=== PATIENT | female | born 1940 | race Two or more races ===

== ENCOUNTER → 2023-11-25 13:58 | Outpatient (REF) | payer MEDICARE, SELFPAY | LOC: WDC 13:58 | PROVIDERS: ATTENDING PHYSICIAN Internal Medicine Geriatric Medicine | DX: Z12.31 Encounter for screening mammogram for malignant neoplasm of breast (principal) | CPT/HCPCS: 77063; 77067 ==

== ENCOUNTER → 2023-12-24 11:30 | Outpatient (REF) | payer MEDICARE, SELFPAY ==
[2023-12-24 12:36] LABS: % Basophils 0.9 % (0-2); % Eosinophils 1.7 % (0-6); % Lymphocytes 38.4 % (20.5-51.1); % Monocytes 15.2 % (1.7-9.3); % Neutrophils 43.8 % (42.2-75.2); Absolute Eosinophils 0.1 10^3/uL (0-0.7); Absolute Lymphocytes 1.6 10^3/uL (1.2-3.4); Absolute Monocytes 0.6 10^3/uL (0.1-0.6); Absolute Neutrophils 1.9 10^3/uL (1.4-6.5); Hematocrit 37.1 % (37.0-47.0); Hemoglobin 12.4 g/dL (12.0-16.0); Mean Corp Hgb Conc. 33.4 g/dL (33.0-37.0); Mean Corpuscular Hgb 30.5 pg (27.0-31.0); Mean Corpuscular Volume 91.2 fL (81.0-99.0); Mean Platelet Volume 12.1 fL (7.4-10.4); Nucleated Red Blood Cells % 0 %; Platelet Count 172 10^3/uL (130-400); Red Blood Cell Count 4.07 10^6/uL (4.20-5.40); Red Cell Dist. Width 13.2 % (11.5-14.5); White Blood Cell Count 4.2 10^3/uL (4.8-10.8)
[2023-12-24 12:39] LABS: Urine Albumin Negative (Neg - Trace); Urine Bilirubin Negative (Negative); Urine Character Clear (Clear); Urine Color Yellow; Urine Glucose Negative (Negative); Urine Ketone Negative (Negative); Urine Leukocyte Negative (Negative); Urine Nitrite Negative (Negative); Urine Occult Blood Negative (Negative); Urine Urobilinogen Negative (Neg - 1+)
[2023-12-24 13:44] LABS: ALT (SGPT) 25 U/L (0-35); AST (SGOT) 30 U/L (14-36); Albumin 4.3 g/dl (3.5-5.0); Alkaline Phosphatase 41 U/L (38-126); Blood Urea Nitrogen 23 mg/dl (7-17); Calcium 9.3 mg/dl (8.4-10.2); Carbon Dioxide 24 mmol/L (22-30); Chloride 105 mmol/L (98-107); Glucose 97 mg/dl (70-99); HDL Cholesterol 65 mg/dl; LDL Cholesterol, Calculated 162 mg/dl; Potassium 4.3 mmol/L (3.5-5.1); Sodium 139 mmol/L (135-145); Total Bilirubin 0.6 mg/dl (0.2-1.3); Total Cholesterol 248 mg/dl (50-199); Total Protein 6.7 g/dl (6.3-8.2); Triglyceride 107 mg/dl (10-149); Very Low Density Lipoprotein 21 mg/dl (0-30); eGFR > 60.00
[2023-12-24 14:02] LABS: Vitamin D, 25-OH*** 34.1 ng/mL (30-80)
== END ==
LOC: OLABPV 11:30
PROVIDERS: ATTENDING PHYSICIAN Internal Medicine Geriatric Medicine
DX: K21.9 Gastro-esophageal reflux disease without esophagitis (principal); Z96.651 Presence of right artificial knee joint; M17.11 Unilateral primary osteoarthritis, right knee; E66.9 Obesity, unspecified; G60.9 Hereditary and idiopathic neuropathy, unspecified; Z13.89 Encounter for screening for other disorder; R60.0 Localized edema; E55.9 Vitamin D deficiency, unspecified
CPT/HCPCS: 36415; 80053; 80061; 81003; 82306; 85025

== ENCOUNTER → 2024-02-08 14:20 | Outpatient (REF) | payer MEDICARE, SELFPAY | LOC: RAD 14:20 | PROVIDERS: ATTENDING PHYSICIAN Internal Medicine Geriatric Medicine | DX: K21.9 Gastro-esophageal reflux disease without esophagitis (principal); Z96.651 Presence of right artificial knee joint; M17.11 Unilateral primary osteoarthritis, right knee; G60.9 Hereditary and idiopathic neuropathy, unspecified; Z13.89 Encounter for screening for other disorder; R60.0 Localized edema; I87.301 Chronic venous hypertension (idiopathic) without complications of right lower extremity; E66.9 Obesity, unspecified | CPT/HCPCS: 93971 ==

== ENCOUNTER → 2024-04-12 11:00 | Outpatient (REF) | payer MEDICARE, OTHER, SELFPAY ==
[2024-04-12 12:42] LABS: ALT (SGPT) 27 U/L (0-35); AST (SGOT) 30 U/L (14-36); Albumin 4.5 g/dl (3.5-5.0); Alkaline Phosphatase 50 U/L (38-126); Blood Urea Nitrogen 22 mg/dl (7-17); Calcium 9.3 mg/dl (8.4-10.2); Carbon Dioxide 24 mmol/L (22-30); Chloride 104 mmol/L (98-107); Glucose 110 mg/dl (70-99); HDL Cholesterol 75 mg/dl; LDL Cholesterol, Calculated 82 mg/dl; Potassium 4.4 mmol/L (3.5-5.1); Sodium 141 mmol/L (135-145); Total Bilirubin 0.6 mg/dl (0.2-1.3); Total Cholesterol 173 mg/dl (50-199); Total Protein 6.8 g/dl (6.3-8.2); Triglyceride 80 mg/dl (10-149); Very Low Density Lipoprotein 16 mg/dl (0-30); eGFR > 60.00
== END ==
LOC: OLABPV 11:00
PROVIDERS: ATTENDING PHYSICIAN Internal Medicine; FAMILY PHYSICIAN Internal Medicine Geriatric Medicine
DX: K21.9 Gastro-esophageal reflux disease without esophagitis (principal); Z96.651 Presence of right artificial knee joint; M17.11 Unilateral primary osteoarthritis, right knee; E66.9 Obesity, unspecified; G60.9 Hereditary and idiopathic neuropathy, unspecified; Z13.89 Encounter for screening for other disorder; R60.0 Localized edema; I87.301 Chronic venous hypertension (idiopathic) without complications of right lower extremity; E78.2 Mixed hyperlipidemia; E55.9 Vitamin D deficiency, unspecified; M54.50 Low back pain, unspecified; M25.812 Other specified joint disorders, left shoulder; R26.9 Unspecified abnormalities of gait and mobility; R26.89 Other abnormalities of gait and mobility; R53.1 Weakness; I50.32 Chronic diastolic (congestive) heart failure
CPT/HCPCS: 36415; 80053; 80061

== ENCOUNTER 2024-07-25 13:04 | Emergency (ER) | payer MEDICARE, OTHER, SELFPAY ==
[2024-07-25 13:13] VITALS: BP 181/89
--- NOTE | 2024-07-25 13:13 | ED.GENMED ---
ED Provider Triage
<Baylee Cedillo PA-C - Last Filed: 07/25/24 19:05>
-
Patient seen by provider in Triage?: Seen in Triage
Attestation: A medical screening examination has been initiated by a qualified medical provider. Based on the assessment performed at this time, it has been determined that an emergent medical condition may exist and the patient has been informed
that further medical evaluation and possible additional diagnostic testing may be needed.
HPI: 83yoF here with low back pain x 1 week. Has not fallen since May. Previously had PT for back pain. Currently at [facility]. Significant difficulty with ambulation due to the back.
GENERAL: Alert , in no apparent distress
EYE: No visual abnormalities.
NECK: Trachea midline
ENT: No visible abnormalities.
LUNGS: No acute respiratory distress
NEUROLOGICAL: Alert and oriented
SKIN: Skin intact. No visible changes.
MUSCULOSKELETAL: Moving extremities normally
PSYCH: Normal and appropriate interaction.
This is a medical evaluation conducted in person to initiate diagnostic evaluation and provide initial therapeutics. Please see further documentation by the treating clinician.
Lumbar spine x-rays ordered.
History of Present Illness
<Baylee Cedillo PA-C - Last Filed: 07/25/24 19:05>
General
Chief Complaint: Back Pain
Time Seen by Provider: 07/25/24 16:20
<Kailee Joseph PA-C - Last Filed: 07/28/24 07:22>
General
Source: patient
Exam Limitations: none
Nursing documentation reviewed up to this point in time: agreed with
History of Present Illness
History of Present Illness:
PT IS A 83 Y/O F
hld, hiatal hernia
fell 3 mo ago, twisted knee and injured ankle on L
she landed into the couch; had some brusing L flank but most pain was knee and ankle. had MRI/Xrays showing meniscus tear L knee and sprain L ankle
in PT, saw [facility] and is scheduled for meniscus repair next week. She was taking Tylenol and Motrin pretty regularly but then stopped the Motrin about a week ago because it was upsetting her stomach. In the last week she has noticed
more and more lower back pain. The back pain is worse with changing position she says she is having a hard time getting up from sitting, when she gets up she can walk but is becoming increasingly difficult. She did take Tylenol in the middle of
the night and then again this morning at 8 AM because the pain was worse. She is not having any numbness or weakness in the legs but she is noticing some swelling and pain in the left calf which is fluctuating when she sleeps it goes down and then
it returns. Patient is worried about a blood clot in her leg.
The pain in her lower back is in the midline region and sometimes wraps around but mostly is in the lower back and nonradiating down her legs, no numbness tingling or weakness and no incontinence. She is not having any urinary discomfort.
Patient's not sure she can get around her independent living apartment at [facility] and was sent here by the physical therapist
Phy Exam
<Kailee Joseph PA-C - Last Filed: 07/28/24 07:22>
Physical Exam
Physical Exam:
GENERAL: Alert , in no apparent distress, comfortable at rest
HEAD: NCAT
NECK: no midline tenderness, active ROM intact, no paraspinal muscle tenderness;
CARDIAC: Regular rate and rhythm, no edema
LUNGS: Clear breath sounds bilaterally, no acute respiratory distress, no wheezes/rales/rhonchi
ABDOMEN: Soft, without focal tenderness, no r/g, no cvat, normal bowel sounds, nondistended
NEUROLOGICAL: Alert and oriented, no focal neuro deficits, CN intact, 5/5 strength, sensation intact, ambulation slight limp left leg
SKIN: Warm and dry,
MUSCULOSKELETAL: No edema, well perfused. Normal inspection of the left hip, left leg
Patient has no tenderness to palpation of the hip,
Left knee slightly swollen, painful range of motion, left calf slightly swollen as well, nonpitting edema, normal pulse
Back: No midline tenderness, slight left paraspinal muscle tenderness on exam, no swelling
negative straight leg raise Bilaterally
PSYCH: Normal and appropriate interaction.
Course
<Baylee Cedillo PA-C - Last Filed: 07/25/24 19:05>
Orders/Labs/Results
Orders:
Orders
07/25/24 13:16
CR Lumbar Spine Comp Min 4 Vw* Urgent
Comment:
Reason For Exam: low back pain
07/25/24 16:47
CT Abd/Pel (IV only)-DH only Urgent
Comment:
Reason For Exam: LOW BACK PAIN X 1 WEEK; WRAPS AROUND ABDOMEN
Hydrocodone 5/APAP 325 [Largo 5/325] 1 tablet PO NOW STA
Venous Doppler Lwr Ext Left [US Periph Venous LOWER Ext LT] Urgent
Comment:
Reason For Exam: LEFT LEG SWELLING, MENISCUS TEAR
07/25/24 18:20
Complete Blood Count/With Diff Urgent
Urinalysis Reflex To Culture Urgent
Date Specimen was Collected: 07/25/24
Time Specimen was Collected: 18:05
Urine Microscopic Reflex Cult Urgent
Urine Culture Urgent
DELANO Source: U
Specimen Description:
Date Specimen was Collected: 07/25/24
Time Specimen was Collected: 18:05
07/25/24 19:25
Comprehensive Metabolic Panel Urgent
07/25/24 21:18
Fosfomycin [Monurol] 3 gm PO ONCE ONE
Lidocaine [Lidocaine 4% Patch] 1 patch TOPICAL NOW STA
Apply Lidocaine patch(s) to:: L knee
07/25/24 21:20
Fosfomycin [Monurol] 3 gm .ROUTE .STK-MED ONE
Lidocaine [Lidocaine 4% Patch] 1 patch .ROUTE .STK-MED ONE
Abnormal Lab Results
07/25/24 07/25/24
18:20 19:25
MPV 10.8 H fL
(7.4-10.4)
Absolute Monos (auto) 1.0 H 10^3/uL
(0.1-0.6)
Lymphocytes % 17.5 L %
(20.5-51.1)
Monocytes % 11.9 H %
(1.7-9.3)
Sodium 131 L mmol/L
(135-145)
Glucose 113 H mg/dl
(70-99)
Urine Ketones 1+ A
(Negative)
Leukocyte Esterase Rfl 1+ A
(Negative)
Urine WBC (Reflex) 11-15 A /HPF
(0-5)
Urine Bacteria (Reflex) Few A
(Negative)
07/25/24 18:20
07/25/24 19:25
Vital Signs
Initial and Last Documented VS:
Initial Vital Signs
Temp Pulse Resp BP Pulse Ox
36.8 C 93 17 181/89 97
07/25/24 13:13 07/25/24 13:13 07/25/24 13:13 07/25/24 13:13 07/25/24 13:13
Last Documented Vital Signs
Temp Pulse Resp BP Pulse Ox
36.6 C 86 18 172/83 96
07/25/24 19:29 07/25/24 19:29 07/25/24 19:29 07/25/24 19:29 07/25/24 19:29
<Kailee Joseph PA-C - Last Filed: 07/28/24 07:22>
Orders/Labs/Results
Orders:
Orders
07/25/24 13:16
CR Lumbar Spine Comp Min 4 Vw* Urgent
Comment:
Reason For Exam: low back pain
07/25/24 16:47
CT Abd/Pel (IV only)-DH only Urgent
Comment:
Reason For Exam: LOW BACK PAIN X 1 WEEK; WRAPS AROUND ABDOMEN
Hydrocodone 5/APAP 325 [Largo 5/325] 1 tablet PO NOW STA
Venous Doppler Lwr Ext Left [US Periph Venous LOWER Ext LT] Urgent
Comment:
Reason For Exam: LEFT LEG SWELLING, MENISCUS TEAR
07/25/24 18:20
Complete Blood Count/With Diff Urgent
Urinalysis Reflex To Culture Urgent
Date Specimen was Collected: 07/25/24
Time Specimen was Collected: 18:05
Urine Microscopic Reflex Cult Urgent
Urine Culture Urgent
DELANO Source: U
Specimen Description:
Date Specimen was Collected: 07/25/24
Time Specimen was Collected: 18:05
07/25/24 19:25
Comprehensive Metabolic Panel Urgent
07/25/24 21:18
Fosfomycin [Monurol] 3 gm PO ONCE ONE
Lidocaine [Lidocaine 4% Patch] 1 patch TOPICAL NOW STA
Apply Lidocaine patch(s) to:: L knee
07/25/24 21:20
Fosfomycin [Monurol] 3 gm .ROUTE .STK-MED ONE
Lidocaine [Lidocaine 4% Patch] 1 patch .ROUTE .STK-MED ONE
Abnormal Lab Results
07/25/24 07/25/24
18:20 19:25
MPV 10.8 H fL
(7.4-10.4)
Absolute Monos (auto) 1.0 H 10^3/uL
(0.1-0.6)
Lymphocytes % 17.5 L %
(20.5-51.1)
Monocytes % 11.9 H %
(1.7-9.3)
Sodium 131 L mmol/L
(135-145)
Glucose 113 H mg/dl
(70-99)
Urine Ketones 1+ A
(Negative)
Leukocyte Esterase Rfl 1+ A
(Negative)
Urine WBC (Reflex) 11-15 A /HPF
(0-5)
Urine Bacteria (Reflex) Few A
(Negative)
07/25/24 18:20
07/25/24 19:25
Vital Signs
Initial and Last Documented VS:
Initial Vital Signs
Temp Pulse Resp BP Pulse Ox
36.8 C 93 17 181/89 97
07/25/24 13:13 07/25/24 13:13 07/25/24 13:13 07/25/24 13:13 07/25/24 13:13
Last Documented Vital Signs
Temp Pulse Resp BP Pulse Ox
36.6 C 86 18 172/83 96
07/25/24 19:29 07/25/24 19:29 07/25/24 19:29 07/25/24 19:29 07/25/24 19:29
<Kailee Joseph PA-C - Last Filed: 07/28/24 07:22>
MDM/Problems Addressed
Differential Diagnosis Includes:
lumbar bck pain, AAA, kidney stone, infection
MDM/Problems Addressed:
83 y/o F with h/l HLD ,neuropathy, sciatica
atraumatic back pain lower back, nonradiating down legs, no associated weakness/numbness
worse with changing positions
did fall months ago but into a couch
was bruised on her L flank at the time but mostly hs had knee and ankle issues
tore meniscus and sprained ankle so she is scheudled for knee surgery next week; it has been causing her to limp
she has tried motrin/tylenol without relief
on exam pt seems comfortable at rest
she has some swelling in her LLE which couldbe related to her meniscal tear but given her asymmetry, US ordeered
her lumbar spine xrays do show DJD which could explain pain but given her age and atraumatic pain history, will w/u with labs, ctap, urine
labs reassuring
trace urine bacteria; asytmpatomic, fosfomycin given due to her pain
ctap no other findings to explain pain
pt ambulated to BR after vicodin which helped pain
rx short course given.
<Kailee Joseph PA-C - Last Filed: 07/28/24 07:22>
*Critical Care Note
Total Time (30-74mins, 75-104mins- exclusive of procedures): Not Applicable
ED Attending Note
<Baylee Cedillo PA-C - Last Filed: 07/25/24 19:05>
-
Portions of this chart may have been created with voice recognition software.� Occasional wrong word or��sound alike� substitutions may have occurred due to the inherent limitations of voice recognition software.
Discharge Plan
Departure
Patient Disposition: Home (Routine Discharge)
Date of Disposition: 07/25/24
Time of Disposition: 21:19
Patient with high blood pressure during this ER visit?: Yes
Condition: Fair
Discharge Problem:
DDD (degenerative disc disease), lumbar, Knee pain, left
Instructions: Low Back Pain (DC)
Prescriptions:
New
hydrocodone-acetaminophen 5-325 mg tablet
1 tab PO BID PRN (Reason: Pain) Qty: 5 0RF
Referrals:
Jim Dempsey MD [Family Provider] -
Activity Restrictions/Additional Instructions:
YOUR BACK PAIN SEEMS MUSCULAR
JUST IN CASE WE GAVE YOU AN ANTIBIOTIC THAT WOULD HOPEFULLY TREAT A MILD URINE INFECTION
YOUR CAT SCAN WAS REASSURING
TAKE EITHER REGULAR TYLENOL 650 MG OR VICODIN 1 TAB EVERY 6HOURS NEEDED FOR PAIN
THE VICODIN IS VERY STRONG, NO ALCOHOL AND BE CAREFUL SO YOU DO NOT GET DIZZY AND FALL
TAKE COLACE WHLIE ON THE VICODIN TO PREVENT CONSTIPATION
RETURN FOR : LEG WEAKNESS, INCONTINENCE, VOMITING, FEVER, WORSE PAIN OR ANY CONCERNS.
Interventions
Interventions:
*Risk Screen - Suicide Last Done: 07/25/24 13:18
*General Assessment Last Done: 07/25/24 13:18
*Neglect/Abuse Screening Last Done: 07/25/24 13:18
ED- Fall Risk Assessment Last Done: 07/25/24 21:45
*ED COVID-19 Vaccine History Last Done: 07/25/24 13:18
*Nursing Disposition Last Done: 07/25/24 21:45
ED-Musculoskeletal Assessment Last Done: 07/25/24 17:00
Discharge Date and Time
Discharge Date/Time: 07/25/24 21:46
Print Language: LAO
[2024-07-25 15:21] VITALS: BP 152/90
[2024-07-25] MEDS: NORCO 5/325 1 TABLET PO (16:57)
[2024-07-25 16:59] VITALS: BMI 34.2
[2024-07-25 17:10] VITALS: BP 149/79
[2024-07-25 18:27] LABS: Urine Albumin Negative (Neg - Trace); Urine Bilirubin Negative (Negative); Urine Character Clear (Clear); Urine Color Yellow; Urine Glucose Negative (Negative); Urine Ketone 1+ (Negative); Urine Leukocyte 1+ (Negative); Urine Nitrite Negative (Negative); Urine Occult Blood Negative (Negative); Urine Specific Gravity 1.015 (<1.030); Urine Urobilinogen Negative (Neg - 1+)
[2024-07-25 18:28] LABS: % Basophils 0.6 % (0-2); % Eosinophils 0.4 % (0-6); % Immature Granulocytes 0.3 % (0-0.5); % Lymphocytes 17.5 % (20.5-51.1); % Monocytes 11.9 % (1.7-9.3); % Neutrophils 69.3 % (42.2-75.2); Absolute Basophils 0.1 10^3/uL (0-0.2); Absolute Lymphocytes 1.4 10^3/uL (1.2-3.4); Absolute Neutrophils 5.5 10^3/uL (1.4-6.5); Hematocrit 39.5 % (37.0-47.0); Hemoglobin 13.4 g/dL (12.0-16.0); Mean Corp Hgb Conc. 33.9 g/dL (33.0-37.0); Mean Corpuscular Hgb 30.6 pg (27.0-31.0); Mean Corpuscular Volume 90.2 fL (81.0-99.0); Mean Platelet Volume 10.8 fL (7.4-10.4); Nucleated Red Blood Cells % 0 %; Platelet Count 201 10^3/uL (130-400); Red Blood Cell Count 4.38 10^6/uL (4.20-5.40); Red Cell Dist. Width 12.9 % (11.5-14.5)
[2024-07-25 18:35] LABS: Urine Bacteria Few (Negative); Urine Red Blood Cell 0-2 /HPF (0-2)
[2024-07-25 19:29] VITALS: BP 172/83
[2024-07-25 19:44] LABS: ALT (SGPT) 21 U/L (0-35); AST (SGOT) 26 U/L (14-36); Albumin 4.4 g/dl (3.5-5.0); Alkaline Phosphatase 50 U/L (38-126); Blood Urea Nitrogen 13 mg/dl (7-17); Calcium 8.8 mg/dl (8.4-10.2); Carbon Dioxide 25 mmol/L (22-30); Estimated Creatinine Clearance 79 ml/min; Glucose 113 mg/dl (70-99); Total Bilirubin 0.9 mg/dl (0.2-1.3); Total Protein 6.9 g/dl (6.3-8.2); eGFR > 60.00
[2024-07-25 20:35] LABS: Chloride 98 mmol/L (98-107); Potassium 4.1 mmol/L (3.5-5.1); Sodium 131 mmol/L (135-145)
[2024-07-25] MEDS: MONUROL 3 GM PO (21:31)
[2024-07-25] MEDS: LIDOCAINE 4% PATCH 1 PATCH TOPICAL (21:31)
== END 2024-07-25 21:46 | disposition home or self-care (01) ==
LOC: EMR 13:04
PROVIDERS: Physician Assistant; EMERGENCY PHYSICIAN Emergency Medicine; FAMILY PHYSICIAN Internal Medicine Geriatric Medicine
DX: M51.360 Other intervertebral disc degeneration, lumbar region with discogenic back pain only (principal); M25.562 Pain in left knee; E78.5 Hyperlipidemia, unspecified; G62.9 Polyneuropathy, unspecified
CPT/HCPCS: 99284; 72110; 74177; 80053; 81003; 81015; 85025; 87086; 93971; Q9967

== ENCOUNTER → 2024-07-28 12:09 | Outpatient (REF) | payer OTHER, MEDICARE, SELFPAY ==
[2024-07-28 13:42] LABS: % Basophils 0.9 % (0-2); % Eosinophils 1.1 % (0-6); % Immature Granulocytes 0.3 % (0-0.5); % Lymphocytes 31.8 % (20.5-51.1); % Monocytes 13.6 % (1.7-9.3); % Neutrophils 52.3 % (42.2-75.2); Absolute Basophils 0.1 10^3/uL (0-0.2); Absolute Eosinophils 0.1 10^3/uL (0-0.7); Absolute Lymphocytes 2.4 10^3/uL (1.2-3.4); Absolute Neutrophils 3.9 10^3/uL (1.4-6.5); Hematocrit 37.9 % (37.0-47.0); Hemoglobin 12.6 g/dL (12.0-16.0); Mean Corp Hgb Conc. 33.2 g/dL (33.0-37.0); Mean Corpuscular Hgb 30.4 pg (27.0-31.0); Mean Corpuscular Volume 91.5 fL (81.0-99.0); Mean Platelet Volume 11.5 fL (7.4-10.4); Nucleated Red Blood Cells % 0 %; Platelet Count 226 10^3/uL (130-400); Red Blood Cell Count 4.14 10^6/uL (4.20-5.40); Red Cell Dist. Width 13.1 % (11.5-14.5); White Blood Cell Count 7.5 10^3/uL (4.8-10.8)
[2024-07-28 14:22] LABS: Blood Urea Nitrogen 16 mg/dl (7-17); Calcium 9.5 mg/dl (8.4-10.2); Carbon Dioxide 24 mmol/L (22-30); Chloride 99 mmol/L (98-107); Glucose 100 mg/dl (70-99); Potassium 4.9 mmol/L (3.5-5.1); Sodium 134 mmol/L (135-145); eGFR > 60.00
== END ==
LOC: OLABP 12:09
PROVIDERS: ATTENDING PHYSICIAN Family Medicine
DX: G60.9 Hereditary and idiopathic neuropathy, unspecified (principal); E78.2 Mixed hyperlipidemia; I87.301 Chronic venous hypertension (idiopathic) without complications of right lower extremity; K21.9 Gastro-esophageal reflux disease without esophagitis; M51.369 Other intervertebral disc degeneration, lumbar region without mention of lumbar back pain or lower extremity pain; E66.9 Obesity, unspecified; E55.9 Vitamin D deficiency, unspecified
CPT/HCPCS: 36415; 80048; 85025

== ENCOUNTER → 2024-08-30 13:53 | Outpatient (REF) | payer MEDICARE, OTHER, SELFPAY | LOC: RAD 13:53 | PROVIDERS: ATTENDING PHYSICIAN Internal Medicine Geriatric Medicine | DX: R60.0 Localized edema (principal) | CPT/HCPCS: 93971 ==

== ENCOUNTER → 2025-01-05 11:21 | Outpatient (REF) | payer MEDICARE, OTHER, SELFPAY ==
[2025-01-05 11:40] LABS: % Basophils 1.1 % (0-2); % Eosinophils 1.1 % (0-6); % Immature Granulocytes 0.4 % (0-0.5); % Lymphocytes 31.7 % (20.5-51.1); % Monocytes 12.7 % (1.7-9.3); Absolute Basophils 0.1 10^3/uL (0-0.2); Absolute Eosinophils 0.1 10^3/uL (0-0.7); Absolute Lymphocytes 1.7 10^3/uL (1.2-3.4); Absolute Monocytes 0.7 10^3/uL (0.1-0.6); Absolute Neutrophils 2.8 10^3/uL (1.4-6.5); Hematocrit 35.8 % (37.0-47.0); Hemoglobin 12.2 g/dL (12.0-16.0); Mean Corp Hgb Conc. 34.1 g/dL (33.0-37.0); Mean Corpuscular Hgb 30.7 pg (27.0-31.0); Mean Corpuscular Volume 89.9 fL (81.0-99.0); Mean Platelet Volume 11.4 fL (7.4-10.4); Nucleated Red Blood Cells % 0 %; Platelet Count 223 10^3/uL (130-400); Red Blood Cell Count 3.98 10^6/uL (4.20-5.40); Red Cell Dist. Width 13.2 % (11.5-14.5); White Blood Cell Count 5.3 10^3/uL (4.8-10.8)
[2025-01-05 11:45] LABS: ALT (SGPT) 24 U/L (0-35); AST (SGOT) 24 U/L (14-36); Albumin 4.5 g/dl (3.5-5.0); Alkaline Phosphatase 48 U/L (38-126); Blood Urea Nitrogen 18 mg/dl (7-17); Calcium 9.2 mg/dl (8.4-10.2); Carbon Dioxide 23 mmol/L (22-30); Chloride 106 mmol/L (98-107); Glucose 106 mg/dl (70-99); HDL Cholesterol 68 mg/dl; LDL Cholesterol, Calculated 146 mg/dl; Potassium 4.3 mmol/L (3.5-5.1); Sodium 137 mmol/L (135-145); Total Bilirubin 0.6 mg/dl (0.2-1.3); Total Cholesterol 236 mg/dl (50-199); Triglyceride 113 mg/dl (10-149); Very Low Density Lipoprotein 22 mg/dl (0-30); eGFR > 60.00
[2025-01-05 12:01] LABS: Vitamin D, 25-OH*** 55.8 ng/mL (30-80)
== END ==
LOC: OLABPV 11:21
PROVIDERS: ATTENDING PHYSICIAN Internal Medicine Geriatric Medicine
DX: R60.0 Localized edema (principal); K21.9 Gastro-esophageal reflux disease without esophagitis; R26.9 Unspecified abnormalities of gait and mobility; M17.11 Unilateral primary osteoarthritis, right knee; E66.9 Obesity, unspecified; I87.301 Chronic venous hypertension (idiopathic) without complications of right lower extremity; E78.2 Mixed hyperlipidemia; E55.9 Vitamin D deficiency, unspecified; M54.50 Low back pain, unspecified; M25.812 Other specified joint disorders, left shoulder; Z13.89 Encounter for screening for other disorder; R26.89 Other abnormalities of gait and mobility; R53.1 Weakness; Z12.31 Encounter for screening mammogram for malignant neoplasm of breast
CPT/HCPCS: 36415; 80053; 80061; 82306; 85025

== ENCOUNTER → 2025-05-10 13:28 | Outpatient (REF) | payer MEDICARE, OTHER, SELFPAY | LOC: RAD 13:28 | PROVIDERS: ATTENDING PHYSICIAN Internal Medicine Geriatric Medicine | DX: R60.0 Localized edema (principal); I87.301 Chronic venous hypertension (idiopathic) without complications of right lower extremity; R26.89 Other abnormalities of gait and mobility; E66.01 Morbid (severe) obesity due to excess calories; E78.2 Mixed hyperlipidemia; R26.9 Unspecified abnormalities of gait and mobility; K21.9 Gastro-esophageal reflux disease without esophagitis; M17.11 Unilateral primary osteoarthritis, right knee; E66.9 Obesity, unspecified | CPT/HCPCS: 93970 ==

== ENCOUNTER → 2025-05-17 16:18 | Outpatient (REF) | payer MEDICARE, OTHER, SELFPAY | LOC: PAVMRI 16:18 | PROVIDERS: ATTENDING PHYSICIAN Internal Medicine Geriatric Medicine | DX: M25.572 Pain in left ankle and joints of left foot (principal) | CPT/HCPCS: 73721 ==

== ENCOUNTER → 2025-07-05 11:31 | Outpatient (REF) | payer MEDICARE, OTHER, SELFPAY | LOC: HWRAD 11:31 | PROVIDERS: ATTENDING PHYSICIAN Specialist; FAMILY PHYSICIAN Internal Medicine Geriatric Medicine | DX: M25.512 Pain in left shoulder (principal) | CPT/HCPCS: 73200 ==